=== PATIENT | female | born 1980 | race Caucasian/White ===

== ENCOUNTER → 2023-01-16 10:20 | Outpatient (CLI) | payer OTHER, SELFPAY ==
--- NOTE | 2023-01-16 10:24 | DI.RAD.S_ITS ---
PROCEDURE: XR LUMBAR SPINE 6V W BENDING INDICATIONS: LBP episodic progressive with L5/S1 slip TECHNIQUE: 5 views of the lumbar spine acquired, including flexion and extension views. COMPARISON: None. FINDINGS: Bones: 5 nonrib-bearing vertebrae are present. There is normal bony alignment. No vertebral body compression fractures. No suspicious bony lesions. No change in alignment throughout limited range of motion. Soft tissues: Overlying bowel gas pattern is normal. No suspicious soft tissue calcifications. IMPRESSION: 1. No acute fracture. No osseous lesion. If symptoms and/or clinical suspicion for pathology persist, further assessment with repeat, or advanced imaging (e.g., CT, MRI, or bone scan) may be helpful for further assessment. 2. No instability throughout limited range of motion. Dictated by: Jenniffer Noble M.D. on 01/16/2023 at 13:35 Transcribed by: DARINEL on 01/16/2023 at 13:36 Approved by: Jenniffer Noble M.D. on 01/16/2023 at 16:29
== END ==
PROVIDERS: PCP Nurse Practitioner Family; Referring Provider Physical Medicine & Rehabilitation; Visit Provider Physical Medicine & Rehabilitation
DX: M43.17 Spondylolisthesis, lumbosacral region (principal); M48.061 Spinal stenosis, lumbar region without neurogenic claudication; M47.816 Spondylosis without myelopathy or radiculopathy, lumbar region
CPT/HCPCS: 72114

== ENCOUNTER → 2023-02-08 14:15 | Outpatient (CLI) | payer OTHER, SELFPAY ==
--- NOTE | 2023-02-08 14:16 | DI.MRI.S_ITS ---
PROCEDURE: MR LUMBAR SPINE WO CON INDICATIONS: Chronic progressive low back pain right-sided nature TECHNIQUE: Noncontrast sagittal T1 spin echo and T2 fast echo, sagittal STIR, and T2 fast spin echo through the lumbar spine. In cases with scoliosis, additional coronal T2 fast spin echo may be performed. COMPARISON: [facility], CR, XR LUMBAR SPINE 6V W BENDING, 01/16/2023, 10:30. FINDINGS: Image quality: Excellent. Alignment and Curvature: Minimal S shaped scoliotic curvature is seen. Minimal L5-S1 retrolisthesis is seen. Bone Marrow: Marrow is of normal overall signal. No acute vertebral body compression fractures. Spinal Cord: Conus medullaris terminates at the L1 level. Visualized cord demonstrates normal signal and size. Paraspinous Soft Tissues: No paravertebral masses. T12-L1: Normal appearance. L1-L2: Normal appearance. L2-L3: Normal appearance. L3-L4: No significant abnormality is seen. L4-L5: Sbtt-wq-bmgvirid loss of disc height and disc signal can be seen. Mild to moderate disc bulge is seen, with a central disc protrusion. Mild to moderate facet hypertrophy is seen. There is moderate right-sided and minimal left-sided neural foraminal narrowing. Mild central canal narrowing is seen. L5-S1: The disc height is well-preserved. Loss of disc signal is seen at this level. Minimal to mild disc bulge is seen, which is eccentric to the right. There is a focal annular fissure seen posteriorly. Moderate facet joint hypertrophy is seen. Moderate bilateral neural foraminal narrowing is seen. No central canal narrowing can be seen. IMPRESSION: Lumbar spine degenerative changes are seen, which are worst inferiorly. Dictated by: Presley Weir M.D. on 02/08/2023 at 14:27 Approved by: Presley Weir M.D. on 02/08/2023 at 14:29
== END ==
PROVIDERS: PCP Nurse Practitioner Family; Referring Provider Physical Medicine & Rehabilitation; Visit Provider Physical Medicine & Rehabilitation
DX: M47.816 Spondylosis without myelopathy or radiculopathy, lumbar region (principal); M43.17 Spondylolisthesis, lumbosacral region
CPT/HCPCS: 72148

== ENCOUNTER 2023-03-03 07:38 | Outpatient (CLI) | payer OTHER, SELFPAY ==
[2023-03-03] VITALS (8 sets, daily range): BP systolic 107–136; BP diastolic 55–71; PULSE 60–78; RESP 16–21; TEMP 36.3; O2SAT 98–100
--- NOTE | 2023-03-03 07:39 | DI.RAD.S_ITS ---
PROCEDURE: PAIN L/SI FACET INJ/BLK 1STL INDICATIONS: SPONDYLOSIS COMPARISON: None. FINDINGS: Fluoroscopic spot filming was performed to verify placement of spinal needles at the L4-5 and L5-S1 level(s), as labeled on the films. Appropriate location(s) of the needle tip(s) was confirmed by injection of iodinated contrast. IMPRESSION: Fluoro guidance was provided intraoperatively for right L4-5 and L5-S1 facet joint injection performed by the ordering physician. Dictated by: Greg Arana M.D. on 03/03/2023 at 9:35 Approved by: Greg Arana M.D. on 03/03/2023 at 9:35
[2023-03-03] MEDS: MIDAZOLAM 2 MG/2 ML VIAL IV (08:36)
[2023-03-03] MEDS: BETAMETHASONE 30 MG/5 ML MDV 12 MG INJ (08:42)
[2023-03-03] MEDS: BUPIVACAINE 0.5% (PF) 30 ML VIAL 5 ML INJ (08:42)
[2023-03-03] MEDS: IOPAMIDOL 15 ML VIAL 3 ML INJ (08:42)
--- NOTE | 2023-03-03 08:51 | P.PCN_ITS ---
Date/Time/Diagnoses Date of procedure: 03/03/23 Time of procedure: 08:51 Pre-procedure diagnosis: 1. FACET ARTHROPATHY, 2. AXIAL LBP, 3. MULTILEVEL DDD Post-procedure diagnosis: same Procedure Notes Procedure: 1. FLUOROSCOPICALLY GUIDED CONTRAST CONTROLLED FACET JOINT INJECTIONS RIGHT L4/5, L5/S1 Indications: Yuan is referred by ASHLEY Hamilton for treatment of Axial LBP Physician: Bo King Total Fluoroscopy time (seconds): 6 Total sedation minutes: 11 Complications: none Procedure in detail & Post-procedure care: FINDINGS Multilevel Facet Arthropathy with Clinically significant axial LBP DESCRIPTION OF PROCEDURE Fluoroscopically guided, contrast-controlled right L4/5, L5/S1 facet joint injections. Following review of allergy and review of potential side effects and complications, including, but not necessarily limited to, infection, allergic reaction, local tissue breakdown, stroke, temporary or permanent nerve injury, paralysis, and possible , the patient indicated that the patient understood and agreed to proceed. An informed consent document was signed by the patient, witnessed by a nurse, and placed in the patient's chart. Additionally, other treatment options including medications, modalities, and physical therapy were reviewed with the patient. After review of previous anaesthesic history and IV conscious sedation the patient was deemed safe to proceed with today?s procedure with IV conscious sedation as ASA class II designation. Safety time-out was performed to confirm patient ID, procedure to be performed and site of procedure. IV sedation was accomplished with a combination of 2mg of Versed was administered by the RN after DO order, titrated to patient comfort during the course of the procedure while the patient remained responsive to all verbal commands. In the prone position, following sterile prep and drape of the lumbar region, the posterior aspect of the right L4/5, L5/S1 facet joints were identified fluor oscopically. The skin was anesthetized via a 25-gauge 1.5-inch needle with 1% lidocaine solution into the corresponding facet joints. At this point, a 22- gauge 3.5-inch spinal needle was atraumatically introduced and advanced under fluoroscopic guidance into the corresponding facet joints. Following negative aspiration, injections of approximately 0.2-cc of Isovue 200 confirmed interarticular placement without vascular uptake. Radiological data, including multiple fluoroscopic views of the lumbosacral spine, reveal a spinal needle at the right L4/5, L5/S1 facet joints. Subsequent views show flow of contrast material both superiorly and inferiorly within the joint space without vascular or intrathecal uptake. At this point, a total of 0.5cc including a mixture of 0.25cc Marcaine and 0.25cc betamethasone was injected without complication into each of the corresponding facet joints. The procedure tolerated the procedure well without signs or symptoms of complications prior to transfer to the recovery area continued monitoring without incident. The patient was then transferred to the recovery area where they were observed for an appropriate period of time after the injection. The patient reported a VAS score of 7 prior to the procedure and a post-procedure VAS of 0. POST OP INSTRUCTIONS The patient was provided a Pain Log to continue to record their response to the target-specific procedure prior to follow-up visit with their referring physician. Additionally, specific post-injection care instructions and a contact number to our office were provided if concerns arise regarding possible complications associated with the procedure are suspected.
== END 2023-03-03 09:06 | disposition home or self-care (01) ==
PROVIDERS: PCP Nurse Practitioner Family; Referring Provider Physical Medicine & Rehabilitation; Visit Provider Physical Medicine & Rehabilitation
DX: M47.816 Spondylosis without myelopathy or radiculopathy, lumbar region (principal); M47.817 Spondylosis without myelopathy or radiculopathy, lumbosacral region; M51.36 Other intervertebral disc degeneration, lumbar region; M51.37 Other intervertebral disc degeneration, lumbosacral region
CPT/HCPCS: 64493; 64494; 99152; J0702; J2250

== ENCOUNTER 2024-04-19 10:11 | Outpatient (CLI) | payer OTHER, SELFPAY ==
[2024-04-19] VITALS (10 sets, daily range): BP systolic 113–132; BP diastolic 58–73; PULSE 52–73; RESP 14–20; TEMP 36.9; O2SAT 94–100
--- NOTE | 2024-04-19 10:45 | DI.RAD.S_ITS ---
PROCEDURE: PAIN L/SI FACET INJ/BLK 1STL INDICATIONS: Right L4-L5 and S1 medial branch block LA COMPARISON: [facility], , PAIN L/SI FACET INJ/BLK 1STL, 03/03/2023, 8:42. FINDINGS: Fluoroscopic spot filming was performed to verify placement of spinal needles at the right L4, L5 and S1 level(s), as labeled on the films. Appropriate location(s) of the needle tip(s) was confirmed by injection of iodinated contrast. IMPRESSION: Intra procedural examination demonstrating appropriate positions of the needles. Dictated by: Desean Clay M.D. on 04/19/2024 at 12:34 Approved by: Desean Clay M.D. on 04/19/2024 at 12:34
[2024-04-19] MEDS: MIDAZOLAM 2 MG/2 ML VIAL IV (11:16)
[2024-04-19] MEDS: iopamidoL 15 ML VIAL 3 ML INJ (11:20)
[2024-04-19] MEDS: BUPIVACAINE 0.5% (PF) 10 ML VIAL 5 ML INJ (11:21)
--- NOTE | 2024-04-19 11:32 | P.PCN_ITS ---
Date/Time/Diagnoses Date of procedure: 04/19/24 Time of procedure: 11:32 Pre-procedure diagnosis: 1. FACET ARTHROPATHY Post-procedure diagnosis: same Procedure Notes Procedure: 1. Right L4, L5 and S1 MB BLOCKS LA Indications: Yuan is referred by ASHLEY Hamilton for treatment of Right Axial LBP. Physician: Bo King Total Fluoroscopy time (seconds): 6 Total sedation minutes: 10 Complications: none Procedure in detail & Post-procedure care: DESCRIPTION OF PROCEDURE Fluoroscopically guided, contrast-controlled right L4, L5 and S1 medial branch blocks with 0.5cc of 0.5% Marcaine. Following review of allergy and review of potential side effects and complications, including, but not necessarily limited to, infection, allergic reaction, local tissue breakdown, nerve injury, paralysis, stroke and possible , the patient indicated that the patient understood and agreed to proceed. An informed consent document was signed by the patient, witnessed by a nurse, and placed in the patient's chart. After review of previous anaesthesic history and IV conscious sedation the patient was deemed safe to proceed with today?s procedure with IV conscious sedation as ASA class II designation. Safety time-out was performed to confirm patient ID, procedure to be performed and site of procedure. IV sedation was accomplished with a combination of 2mg of Versed was administered by the RN after DO order, titrated to patient comfort during the course of the procedure while the patient remained responsive to all verbal commands In the prone position, following sterile prep and drape of the lumbar region, the right L4, L5 and S1 anatomical location of the medial branch of the dorsal ramus was identified fluoroscopically. Subsequently an anesthetic skin wheal using 1% lidocaine solution was initiated at each of the anatomical spots. Subsequently then a 22-gauge 3.5-inch spinal needle was atraumatically introduced and advanced under fluoroscopic guidance at each of the corresponding sites at the right L4, L5 and S1 MB. After negative aspiration, 0.2 cc of Isovue 200 was injected, confirming placement without vascular or intrathecal uptake. Subsequently then 0.5 cc of 0.5% Marcaine solution was injected at each of the corresponding sites at the right L4, L5 and S1 medial branch locations. The patient tolerated the procedure well without signs or symptoms of complications. The procedure tolerated the procedure well without signs or symptoms of complications prior to transfer to the recovery area continued monitoring without incident. Post-procedure, the patient was monitored initiating provocative activities to measure the amount of relief from block of the facetogenic pain. The patient reported a VAS of 7 prior to the procedure and a post-procedure VAS of 1. It has been a pleasure to assist in the diagnostic and therapeutic care of your patient. POST OP INSTRUCTIONS The patient was provided with a Pain Log to complete over the next several hours and subsequent days prior to the patient's follow up with the ordering physician. If the patient has chief human resources officer relief to the solution applied, then they may be a candidate for medial branch rhizotomy. The patient is aware, was provided, once again, with a Pain Log and will follow up with the referring physician for review and clinical correlation.
--- NOTE | 2024-04-19 11:51 | PC.NURSE ---
Discharge: Patient noted some mild numbness/weakness to R leg. Patient states that she wants to go home and will be resting the remainder of the day. Patient states that her and daughters are at home today to help her. Patient able to stand on her own. Patient able to walk to wheelchair with stand-by assist. Patient verbalized understanding of discharge instructions. Patient taken to her [facility] vai wheelchair. Patient's Angelito is patient's tow motor driver.
== END 2024-04-19 11:57 | disposition home or self-care (01) ==
PROVIDERS: PCP Nurse Practitioner Family; Referring Provider Physical Medicine & Rehabilitation; Visit Provider Physical Medicine & Rehabilitation
DX: M47.816 Spondylosis without myelopathy or radiculopathy, lumbar region (principal); M47.817 Spondylosis without myelopathy or radiculopathy, lumbosacral region
CPT/HCPCS: 64493; 64494; 99152; J2250

== ENCOUNTER 2024-05-26 12:31 | Outpatient (CLI) | payer OTHER, SELFPAY ==
[2024-05-26] VITALS (8 sets, daily range): BP systolic 109–134; BP diastolic 55–73; PULSE 58–73; RESP 14–20; TEMP 36.4; O2SAT 98–100
--- NOTE | 2024-05-26 13:00 | DI.RAD.S_ITS ---
PROCEDURE: PAIN L/SI FACET INJ/BLK 1STL INDICATIONS: Right L4,L5,S1 MBB - SA COMPARISON: [facility], XA, PAIN L/SI FACET INJ/BLK 1STL, 04/19/2024, 11:19. FINDINGS: Fluoroscopic spot filming was performed to verify placement of spinal needles at the right L4-5, L5-S1 level(s), as labeled on the films. Appropriate location(s) of the needle tip(s) was confirmed by injection of iodinated contrast. IMPRESSION: Contrast and needle placement overlying L4-5, L5-S1 Dictated by: Marly Schofiedl M.D. on 05/26/2024 at 22:48 Approved by: Marly Schofield M.D. on 05/26/2024 at 22:49
[2024-05-26] MEDS: MIDAZOLAM 2 MG/2 ML VIAL IV (13:13)
[2024-05-26] MEDS: iopamidoL 15 ML VIAL 3 ML INJ (13:19)
[2024-05-26] MEDS: LIDOCAINE 2% INJ SDV 5ML 5 ML INJ (13:19)
[2024-05-26] MEDS: LIDOCAINE 1% 20 ML INJ (13:20)
--- NOTE | 2024-05-26 13:35 | PM.PROC.IR.1 ---
Date/Time/Diagnoses Date of procedure: 05/26/24 Time of procedure: 13:35 Pre-procedure diagnosis: Lumbar Facet Arthropathy Post-procedure diagnosis: same Procedure Notes Procedure: 1. Right L4, L5 and S1 MB BLOCKS SA Indications: Yuan is referred for treatment of Right Axial LBP. Physician: Bo King Total Fluoroscopy time (seconds): 6 Total sedation minutes: 16 Complications: none Procedure in detail & Post-procedure care: DESCRIPTION OF PROCEDURE Fluoroscopically guided, contrast-controlled right L4, L5 and S1 medial branch blocks with 0.5cc of 2% Lidocaine. Following review of allergy and review of potential side effects and complications, including, but not necessarily limited to, infection, allergic reaction, local tissue breakdown, nerve injury, paralysis, stroke and possible , the patient indicated that the patient understood and agreed to proceed. An informed consent document was signed by the patient, witnessed by a nurse, and placed in the patient's chart. After review of previous anaesthesic history and IV conscious sedation the patient was deemed safe to proceed with today?s procedure with IV conscious sedation as ASA class II designation. Safety time-out was performed to confirm patient ID, procedure to be performed and site of procedure. IV sedation was accomplished with a combination of 2mg of Versed was administered by the RN after DO order, titrated to patient comfort during the course of the procedure while the patient remained responsive to all verbal commands In the prone position, following sterile prep and drape of the lumbar region, the right L4, L5 and S1 anatomical location of the medial branch of the dorsal ramus was identified fluoroscopically. Subsequently an anesthetic skin wheal using 1% lidocaine solution was initiated at each of the anatomical spots. Subsequently then a 22-gauge 3.5-inch spinal needle was atraumatically introduced and advanced under fluoroscopic guidance at each of the corresponding sites at the right L4, L5 and S1 MB. After negative aspiration, 0.2 cc of Isovue 200 was injected, confirming placement without vascular or intrathecal uptake. Subsequently then 0.5 cc of 2% Lidocaine solution was injected at each of the corresponding sites at the right L4, L5 and S1 medial branch locations. The patient tolerated the procedure well without signs or symptoms of complications. The procedure tolerated the procedure well without signs or symptoms of complications prior to transfer to the recovery area continued monitoring without incident. Post-procedure, the patient was monitored initiating provocative activities to measure the amount of relief from block of the facetogenic pain. The patient reported a VAS of 7 prior to the procedure and a post-procedure VAS of 1. It has been a pleasure to assist in the diagnostic and therapeutic care of your patient. POST OP INSTRUCTIONS The patient was provided with a Pain Log to complete over the next several hours and subsequent days prior to the patient's follow up with the ordering physician. If the patient has inpatient pharmacist relief to the solution applied, then they may be a candidate for medial branch rhizotomy. The patient is aware, was provided, once again, with a Pain Log and will follow up with the referring physician for review and clinical correlation.
== END 2024-05-26 13:50 | disposition home or self-care (01) ==
LOC: RAD 12:32
PROVIDERS: Referring Provider Physical Medicine & Rehabilitation; Visit Provider Physical Medicine & Rehabilitation
DX: M47.816 Spondylosis without myelopathy or radiculopathy, lumbar region (principal); M47.817 Spondylosis without myelopathy or radiculopathy, lumbosacral region
CPT/HCPCS: 64493; 64494; 99152; J2250

== ENCOUNTER 2024-07-26 10:31 | Outpatient (CLI) | payer OTHER, SELFPAY ==
[2024-07-26] VITALS (9 sets, daily range): BP systolic 112–132; BP diastolic 55–86; PULSE 61–72; RESP 14–20; TEMP 36.2; O2SAT 98–100
--- NOTE | 2024-07-26 11:00 | DI.RAD.S_ITS ---
PROCEDURE: PAIN L/S MED/LAT N RFA INDICATIONS: SPONDYLOSIS COMPARISON: None. FINDINGS: Fluoroscopic spot filming was performed to verify placement of spinal needles at the L4-S1 level(s), as labeled on the films. Appropriate location(s) of the needle tip(s) was confirmed by injection of iodinated contrast. IMPRESSION: L4-S1 injections. Please see operative note for full details. Dictated by: Inderjit Travis M.D. on 07/26/2024 at 17:48 Approved by: Inderjit Travis M.D. on 07/26/2024 at 17:48
[2024-07-26] MEDS: MIDAZOLAM 2 MG/2 ML VIAL IV (11:23)
[2024-07-26] MEDS: BUPIVACAINE 0.5% (PF) 10 ML VIAL 5 ML INJ (11:28)
[2024-07-26] MEDS: LIDOCAINE 1% 20 ML 5 ML INJ (11:28)
--- NOTE | 2024-07-26 11:51 | P.PCN_ITS ---
Date/Time/Diagnoses Date of procedure: 07/26/24 Time of procedure: 11:52 Pre-procedure diagnosis: 1. RECALCITRANT FACET ARTHROPATHY Post-procedure diagnosis: same Procedure Notes Procedure: 1. RIGHT L4 AND L5 MEDIAL BRANCH RADIOFREQUENCY NEUROTOMY AND RIGHT S1 DORSAL RAMUS BRANCH RADIOFREQUENCY NEUROTOMY Indications: Yuan is referred for treatment of facet arthropathy. Physician: Bo King Total Fluoroscopy time (seconds): 9 Total sedation minutes: 23 Complications: none Procedure in detail & Post-procedure care: DESCRIPTION OF PROCEDURE Right L4 and L5 medial branch radiofrequency neurotomy and right S1 dorsal ramus branch radiofrequency neurotomy under fluoroscopy with conscious sedation. The patient is well known to this clinic having undergone previous facet injections with good but temporary relief. The patient has experienced appropriate, concordant relief with previous facet and median branch blocks but the patient's pain has been recalcitrant to further conservative measures. Therefore, based upon the patient's relief and persistent symptoms, the patient is considered an appropriate candidate for facet rhizotomy. All of the patient's questions regarding the risks versus benefits of the procedure, including, but not limited to, bleeding, infection, temporary as well as lasting nerve injury, paralysis, stroke, and , as well treatment alternatives were answered to satisfaction. After review of previous anaesthesic history and IV conscious sedation the patient was deemed safe to proceed with today?s procedure with IV conscious sedation as ASA class II designation. Safety time-out was performed to confirm patient ID, procedure to be performed and site of procedure. IV sedation was accomplished with a combination of 2mg of Versed was administered by the RN after DO order, titrated to patient comfort during the course of the procedure while the patient remained responsive to all verbal commands. After obtaining informed consent, denial of pertinent drug allergies, as well as being made aware of the potential risks of bleeding, infection, spinal cord trauma, paralysis, temporary and permanent nerve damage, seizure, stroke, and possible , the patient was brought to the fluoroscopy suite and positioned prone on the fluoroscopy table. The lumbar region was prepped with chlorhexadine and covered with a fenestrated drape in the usual sterile fashion. Appropriate monitors applied including pulse oximeter, pulse, and blood pressure for regular monitoring throughout the procedure. After local infiltration using 1% lidocaine, under fluoroscopic guidance, a 10- cm RF insulated needle with a 10-mm active tip was positioned parallel to the junction of the right sacral ala and the superior articulating process where the S1 dorsal ramus resides. Needle placement was confirmed with sensory stimulation at 50 Hz, with motor stimulation of .5v on the right which produced local stimulation without radicular component. The stimulation was then increased to 2v with, once again, only local multifidus stimulation without radicular component. This was then followed by two discreet lesions performed at 80 degrees Celsius for 90 seconds each. The needle was then removed and the identical procedure was performed along the length of the right L5 medial branch with motor stimulation at .7v on the right. The identical procedure was once again performed along the length of the right L4 medial branch with motor stimulation of .5v on the right. The patient tolerated the procedure well without signs or symptoms of complications prior to transfer to the recovery area continued monitoring without incident. The patient was then transferred to the recovery area where they were observed for an appropriate period of time after the injection. The patient was then transferred to the recovery area where they were observed for an appropriate period of time after the injection. The patient reported a VAS score of 8 prior to the procedure and a post- procedure VAS of 1. POST OP INSTRUCTIONS The patient was provided a Pain Log to continue to record the patient's response to the target-specific procedure prior to the patient's follow-up visit with the referring physician. Additionally, specific post-injection care instructions and a contact number to our office were provided if concerns arise regarding possibl e complications associated with the procedure are suspected.
== END 2024-07-26 12:12 | disposition home or self-care (01) ==
LOC: RAD 10:32
PROVIDERS: Referring Provider Physical Medicine & Rehabilitation; Visit Provider Physical Medicine & Rehabilitation
DX: M47.816 Spondylosis without myelopathy or radiculopathy, lumbar region (principal); M47.817 Spondylosis without myelopathy or radiculopathy, lumbosacral region
CPT/HCPCS: 64635; 64636; 99152; J2250